=== PATIENT | male | born 1960 | race Caucasian/White ===

== ENCOUNTER 2023-08-16 11:28 | Outpatient (OUT) | payer OTHER, SELFPAY ==
[2023-08-16 12:00] LABS: Basophils Percent Auto 0.4 % (0.2-2.0); Eosinophils Absolute Auto 0.3 10^3/uL (0.0-0.7); Eosinophils Percent Auto 5.2 % (0.9-7.0); Hematocrit 49.4 % (42.0-54.0); Hemoglobin 16.4 g/dL (14.0-18.0); Immature Granulocytes Abs Auto 0.01 10^3/uL (0.00-0.03); Immature Granulocytes Pct Auto 0.2 % (0.0-0.5); Lymphocytes Absolute Auto 1.2 10^3/uL (1.2-3.8); Lymphocytes Percent Auto 23.7 % (20.5-60.0); Mean Corpuscular HGB Conc 33.2 g/dL (29.9-35.2); Mean Corpuscular Hemoglobin 30.7 pg (25.9-34.0); Mean Corpuscular Volume 92.3 fL (80.0-94.0); Mean Platelet Volume 9.1 fL (9.5-13.5); Monocytes Absolute Auto 0.4 10^3/uL (0.3-0.8); Monocytes Percent Auto 7.4 % (1.7-12.0); Neutrophils Absolute Auto 3.3 10^3/uL (1.4-6.5); Neutrophils Percent Auto 63.1 % (43.0-75.0); Platelet Count 298 10^3/uL (150-450); Red Blood Count 5.35 10^6/uL (4.70-6.10); Red Cell Distribution Width 13.1 % (11.0-15.0); White Blood Count 5.2 10^3/uL (4.0-11.0)
[2023-08-16 12:51] LABS: Alanine Aminotransferase 48 U/L (16-63); Alkaline Phosphatase 67 U/L (46-116); Aspartate Amino Transferase 26 U/L (15-37); BUN Creatinine Ratio 16.1; Calcium 9.6 mg/dL (8.5-10.1); Carbon Dioxide 28.8 mmol/L (21.0-32.0); Chloride 103 mmol/L (98-107); Cholesterol 290 mg/dL (<=200); Estimated GFR (African America >60 (>=60); Estimated GFR (Non-African Ame >60 (>=60); Free T3 2.97 pg/mL (2.18-3.98); Globulin 4.1 g/dL; Glucose 135 mg/dL (74-106); HDL Cholesterol 48 mg/dL (40-60); Potassium 3.8 mmol/L (3.5-5.1); Sodium 143 mmol/L (136-145); Thyroid Stimulating Hormone 1.659 uIU/mL (0.358-3.740); Total Protein 8.1 g/dL (6.4-8.2); Triglycerides 175 mg/dL (<=150)
[2023-08-16 12:52] LABS: Prostate Specific Antigen Scrn 5.63 ng/mL (<=4.00)
[2023-08-16 13:07] LABS: Estimated Average Glucose 143 mg/dL; Glycohemoglobin A1C 6.6 % (4.5-6.2)
[2023-08-18 04:08] LABS: PSA, Free 0.78 ng/mL; Prostate Specific Ag 4.9 ng/mL (0.0-4.0)
== END 2023-08-16 11:29 | disposition home or self-care (01) ==
LOC: LAB 11:35
PROVIDERS: PCP Family Medicine; Visit Provider Family Medicine
DX: Z00.00 Encounter for general adult medical examination without abnormal findings (principal); E78.5 Hyperlipidemia, unspecified; R73.09 Other abnormal glucose; Z12.5 Encounter for screening for malignant neoplasm of prostate; R97.20 Elevated prostate specific antigen [PSA]
CPT/HCPCS: 36415; 80053; 80061; 83036; 84153; 84154; 84436; 84443; 84481; 85025; G0103

== ENCOUNTER 2023-11-22 09:52 | Outpatient (OUT) | payer OTHER, SELFPAY ==
--- OUTSIDE RECORDS SUMMARY | 2023-11-22 10:01 | XMS_ITS | CCD ---
Author Organization [facility] Care Team Providers Care Paste Maker Name Role Phone PHYSICIAN, DEFAULT Unavailable Unavailable PHYSICIAN, DEFAULT Unavailable Unavailable Hoy, Julian Primary Care Physician [phone] REYNA, DR PRESTON Attending Unavailable HOY, JULIAN Primary Care Unavailable JOSÉ MIGUELUKACT, DR PRESTON Consulting Unavailable MOUKARBEL, DR PRESTON Admitting Unavailable HOY, JULIAN Primary Care Unavailable HOY, JULIAN Admitting Unavailable HOY, JULIAN Attending Unavailable HOY, JULIAN Consulting Unavailable HOY, JULIAN Primary Care Unavailable HOY, JULIAN Admitting Unavailable HOY, JULIAN Attending Unavailable HOY, JULIAN Primary Care Unavailable HOY, JULIAN Admitting Unavailable HOY, JULIAN Attending Unavailable HOY, JULIAN Consulting Unavailable NILL ., DR JOHNSTON Consulting Unavailable NILL ., DR JOHNSTON Admitting Unavailable NILL ., DR JOHNSTON Attending Unavailable HOY, JULIAN Primary Care Unavailable NILL ., DR JOHNSTON Admitting Unavailable HOY, JULIAN Primary Care Unavailable NILL ., DR JOHNSTON Attending Unavailable HOY, JULIAN Consulting Unavailable WANDA FOREMAN Consulting Unavailable NILL ., DR JOHNSTON Admitting Unavailable NILL ., DR JOHNSTON Attending Unavailable HOY, JULIAN Primary Care Unavailable NILL ., DR JOHNSTON Consulting Unavailable JERALD SCHREIBER Consulting Unavailable ANDERSON DAVIS Consulting Unavailable MOUKARBEL, DR PRESTON Admitting Unavailable HOY, JULIAN Primary Care Unavailable MOUKARBOLIVERIO, DR PRESTON Attending Unavailable HOY, JULIAN Admitting Unavailable HOY, JULIAN Attending Unavailable HOY, JULIAN Consulting Unavailable HOY, JULIAN Primary Care Unavailable JOSE GUERRERO Consulting Unavailable Medications Current Medications Medication Drug Class(es) Dates Sig (Normalized) Sig (Original) ALPRAZolam 0.25 mg oral tablet (3 sources) Benzodiazepine Start: 11-19-2021 take 0.125 mg by mouth twice daily Xanax 0.25 mg Tab 0.125 mg = 0.5 tab(s), Oral, BID, Refills(s) 0 Start Date: 11/19/21 Status: Ordered aspirin 81 mg delayed release oral tablet (3 sources) Platelet Aggregation Inhibitor, Nonsteroidal Anti-inflammatory Drug Start: 11-19-2021 take 1 tablet by mouth once daily aspirin 81 mg Oral EC Tab 81 mg = 1 tab(s), Oral, Daily, Refills(s) 0 Start Date: 11/19/21 Status: Ordered Start: 11-19-2021 take 1 tablet by adam th once daily aspirin 81 mg Oral EC Tab 81 mg = 1 tab(s), Oral, Daily, Refills(s) 0 Start Date: 11/19/21 Status: Ordered 24 hr desvenlafaxine succinate 25 mg extended release oral tablet (2 sources) Serotonin and Norepinephrine Reuptake Inhibitor Start: 01-04-2022 take 1 tablet by mouth once daily Pristiq 25 mg oral tablet, extended release 25 mg = 1 tab(s), Oral, Daily, Refills(s) 0 Start Date: 01/04/22 Status: Ordered Problems Active Problems Problem Classification Problem Date Documented Da te Episodic/Chronic Anal and rectal conditions (1 source) Anorectal disorder; Translations: [Other specified diseases of anus and rectum] Onset: 12-01-2021 Episodic Anxiety disorders (3 sources) Anxiety 07-07-2020 Chronic Cancer; other and unspecified primary (3 sources) H/O Malignant melanoma 07-07-2020 Episodic Cardiac dysrhythmias (3 sources) Palpitations 07-07-2020 Episodic Disorders of lipid metabolism (10 sources) Familial hypercholesterolemia; Translations: [Hyperlipidemia] Onset: 10-26-2021 07-07-2020 Chronic Gastrointestinal hemorrhage (3 sources) Rectal hemorrhage 07-07-2020 Episodic Melanomas of skin (1 source) Malignant melanoma of skin, unspecified; Translations: [MALIGNANT MELANOMA OF SKIN UNSPEC] Onset: 12-29-2021 Chronic Miscellaneous mental health disorders (1 source) Primary insomnia; Translations: [PRIMARY INSOMNIA] Onset: 01-29-2022 Chronic Mood disorders (1 source) Major depressive disorder, single episode, unspecified; Translations: [TARA DEPRESS D/O SINGLE EPIS UNS] Onset: 01-12-2022 Chronic Occlusion or stenosis of precerebral arteries (3 sources) Left carotid artery stenosis 07-07-2020 Chronic Other circulatory disease (3 sources) Carotid bruit 07-07-2020 Episodic Other circulatory disease (3 sources) Prehypertension 07-07-2020 Episodic Other ear and sense organ disorders (3 sources) Sensorineural hearing loss 07-07-2020 Chronic Other nutritional; endocrine; and metabolic disorders (3 sources) Body mass index 25-29 - overweight 12-01-2021 Episodic Residual codes; unclassified (4 sources) Obstructive sleep apnea (adult) (pediatric); Translations: [OBSTRUCTIVE SLEEP APNEA] Onset: 01-26-2022 Chronic Residual codes; unclassified (1 source) Sleep apnea, unspecified; Translations: [SLEEP APNEA UNSPECIFIED] Onset: 01-12-2022 Chronic Screening and history of mental health and substance abuse codes (3 sources) H/O: depression 07-07-2020 Episodic Unclassified (3 sources) Perianal skin irritation 12-01-2021 Unclassified (1 source) CONTACT W/AND (SUSP) EXPOS COVID-19; Translations: [CONTACT W/AND (SUSP) EXPOS COVID-19] Onset: 01-07-2022 Past or Other Problems Problem Classification Problem Date Documented Da te Episodic/Chronic Abdominal hernia (13 sources) Inguinal hernia; Translations: [Unilateral inguinal hernia, without obstruction or gangrene, not specified as recurrent] Onset: 12-01-2021 Episodic Malaise and fatigue (5 sources) Other fatigue; Translations: [OTHER FATIGUE] Onset: 12-22-2021 Episodic Other aftercare (1 source) 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; Translations: [CAN CUTTER CURRENT USE OF ASPIRIN] Onset: 01-12-2022 Episodic Other aftercare (1 source) Other termite helper (current) drug therapy; Translations: [OTH CAN CUTTER CURRENT DRUG THERAPY] Onset: 01-12-2022 Episodic Other non-epithelial cancer of skin (1 source) Personal history of other malignant neoplasm of skin; Translations: [PERSONAL HX OTH MALIG NEOPLASM SKIN] Onset: 01-12-2022 Episodic Residual codes; unclassified (4 sources) Disorientation, unspecified; Translations: [DISORIENTATION UNSPECIFIED] Onset: 11-20-2021 Episodic Results Test Name Value Interpretation Reference Range Facility General Surgery Office/Clini c Noteon 02-14-2022 General Surgery Office/Clinic Note Chief Complaint post operative follow up HPI Staff 27 day post operative follow up post right inguinal hernia repair. Denies pain, bleeding or drainage. History of Present Illness 4 weeks s/p RIHR with mesh, doing well, denies pain, no swelling or drainage. Review of Systems ROS - Provider Constitutional: no fever, no sweats, no weight loss. Eyes: no glasses, no blurred vision, no visual loss. ENMT: no dentures, no hoarseness, no swallowing difficulties, no hearing loss, no ear infection(s), no nose bleeds. Cardiovascular: normal blood pressure, no chest pain, regular heartbeat, no heart murmur. Respiratory: no shortness of breath, no cough, no asthma, no wheezing. Gastrointestinal: no nausea, no vomiting, no diarrhea, no constipation, no blood in stool, no change in bowel habits, no abdominal pain, no hepatitis. Genitourinary: no kidney stones, no urine infection, no dysuria. Musculoskeletal: no pain, no weakness. Skin: no changing moles, no rash, no skin lumps. Neurologic: no seizures, no epilepsy, no headache. Psychiatric: no emotional or psychiatric problem. Heme/Lymph: no bleeding problems, no anemia, no blood clots, no transfusions. Allergy/Immunologic: no swollen lymph nodes/glands, no IV drug abuse. Other: Additional ROS info: Except as noted in the above Review of Systems and in the History of Present Illness, all other systems have been reviewed and are negative or noncontributory. Physical Exam abd: soft, nontender, nondistended; incision healing well, no erythema or drainage; no recurrent hernias. Assessment/Plan 1. Right inguinal hernia (K40.90: Unilateral inguinal hernia, without obstruction or gangrene, not specified as recurrent) doing well, gradually resume regular activities; call with problems/questions. Follow-up With When Contact Information ARISTEO JONES, YANY Grier Only if needed [address] [place] [address]- Additional Instructions: Problem List/Past Medical History Ongoing Anxiety BMI 29.0-29.9,adult Borderline hypertension Carotid bruit Familial hypercholesterolemia High frequency sensorineural hearing loss of left ear History of depression History of malignant melanoma Hyperlipidemia Irritation of skin of perianal region Left carotid artery stenosis Left inguinal hernia Palpitations Rectal bleeding Right inguinal hernia Historical No qualifying data Procedure/Surgical History Repair of right inguinal hernia (01/06/2022), Rotator cuff repair (10/23/2020), Colonoscopy (12/29/2016), Cervical spinal fusion, Deviated nasal septum, Eyelid, Malignant melanoma, Repair of left inguinal hernia, Rubber band ligation of hemorrhoid(s). Medications aspirin 81 mg Oral EC Tab, 81 mg= 1 tab(s), Oral, Daily Pristiq 25 mg oral tablet, extended release, 25 mg= 1 tab(s), Oral, Daily Xanax 0.25 mg Tab, 0.125 mg= 0.5 tab(s), Oral, BID Allergies No Known Allergies No Known Medication Allergies Social History Alcohol - Denies Alcohol Use, 07/10/2020 Substance Abuse - Denies Substance Abuse, 07/10/2020 Tobacco Never (less than 100 in lifetime) Tobacco Use:. Never Smokeless Tobacco Use:., 12/01/2021 Family History Cancer: Brother. Cardiac arrest: Mother. Pancreatic adenocarcinoma: Father. [facility] Comment on above: Result Comment: Elec tronically Signed By: ARISTEO JONES, Preston Thakkar\.br\Date and Time Signed: 02/14/22 21:00 EDT Formson 01-22-2022 Forms [id number]:12 7 [facility] Ambulatory Visit Summaryon 0 01-19-2022 Ambulatory Visit Summary CARINA LAM :1960 Visit Date:01/19/2022 Ambulatory Visit Instructions Your Care Team Attending Physician - ARISTEO JONES, Preston Thakkar Primary Care Physician - Julian Wang MD This Is Your Medications List alprazolam (Xanax 0.25 mg Tab) aspirin (aspirin 81 mg Oral EC Tab) desvenlafaxine (Pristiq 25 mg oral tablet, extended release) Procedures Performed Repair of right inguinal hernia (01/06/2022), Rotator cuff repair (10/23/2020), Colonoscopy (12/29/2016), Cervical spinal fusion, Deviated nasal septum, Eyelid, Malignant melanoma, Repair of left inguinal hernia, Rubber band ligation of hemorrhoid(s). What to do next Scheduled Follow-Up Appointments Tuesday 2:40 PM EDT With: ARISTEO JONES, Preston Thakkar Where: General Surgery [facility] General Surgery Office/Clini c Noteon 01-19-2022 General Surgery Office/Clinic Note Chief Complaint post operative follow up HPI Staff 13 day post operative follow up post right inguinal hernia repair. Denies pain, no use of pain medication. Denies bleeding or drainage. Bowels moving well. History of Present Illness 2 weeks s/p RIHR with mesh; doing well, mild soreness, not taking any pain meds, normal bms; no N/V; voiding well, no drainage from incision; no strenuous activities. Review of Systems ROS - Provider Constitutional: no fever, no sweats, no weight loss. Eyes: no glasses, no blurred vision, no visual loss. ENMT: no dentures, no hoarseness, no swallowing difficulties, no hearing loss, no ear infection(s), no nose bleeds. Cardiovascular: normal blood pressure, no chest pain, regular heartbeat, no heart murmur. Respiratory: no shortness of breath, no cough, no asthma, no wheezing. Gastrointestinal: no nausea, no vomiting, no diarrhea, no constipation, no blood in stool, no change in bowel habits, no abdominal pain, no hepatitis. Genitourinary: no kidney stones, no urine infection, no dysuria. Musculoskeletal: no pain, no weakness. Skin: no changing moles, no rash, no skin lumps. Neurologic: no seizures, no epilepsy, no headache. Psychiatric: no emotional or psychiatric problem. Heme/Lymph: no bleeding problems, no anemia, no blood clots, no transfusions. Allergy/Immunologic: no swollen lymph nodes/glands, no IV drug abuse. Other: Additional ROS info: Except as noted in the above Review of Systems and in the History of Present Illness, all other systems have been reviewed and are negative or noncontributory. Physical Exam abd: soft, normal bs, nontender, incision healing well, no erythema or drainage, no ecchymoses. Assessment/Plan 1. Right inguinal hernia (K40.90: Unilateral inguinal hernia, without obstruction or gangrene, not specified as recurrent) doing well; continue no lifting > 10 lbs for 2 more weeks, follow up in 2 weeks; call sooner if problems/questions. Follow-up No qualifying data available Problem List/Past Medical History Ongoing Anxiety BMI 29.0-29.9,adult Borderline hypertension Carotid bruit Familial hypercholesterolemia High frequency sensorineural hearing loss of left ear History of depression History of malignant melanoma Hyperlipidemia Irritation of skin of perianal region Left carotid artery stenosis Left inguinal hernia Palpitations Rectal bleeding Right inguinal hernia Historical No qualifying data Procedure/Surgical History Repair of right inguinal hernia (01/06/2022), Rotator cuff repair (10/23/2020), Colonoscopy (12/29/2016), Cervical spinal fusion, Deviated nasal septum, Eyelid, Malignant melanoma, Repair of left inguinal hernia, Rubber band ligation of hemorrhoid(s). Medications aspirin 81 mg Oral EC Tab, 81 mg= 1 tab(s), Oral, Daily Pristiq 25 mg oral tablet, extended release, 25 mg= 1 tab(s), Oral, Daily Xanax 0.25 mg Tab, 0.125 mg= 0.5 tab(s), Oral, BID Allergies No Known Allergies No Known Medication Allergies Social History Alcohol - Denies Alcohol Use, 07/10/2020 Substance Abuse - Denies Substance Abuse, 07/10/2020 Tobacco Never (less than 100 in lifetime) Tobacco Use:. Never Smokeless Tobacco Use:., 12/01/2021 Family History Cancer: Brother. Cardiac arrest: Mother. Pancreatic adenocarcinoma: Father. Normal [facility] Comment on above: Result Comment: Elec tronically Signed By: ARISTEO JONES, Preston Velarde\Date and Time Signed: 01/19/22 16:25 EDT Operative Reporton Operative Report [id number]:12 7 Normal [facility] Lab Reportson 01-04-2022 Lab Reports [id number]:12 7 Normal [facility] Covid-19 PCR (CVDTBH)on SARS-CoV-2 (COVID-19) RNA FARA+probe Ql (Unsp spec) Not detected Normal NOT DETECTED [facility] Comment on above: Result Comment: When diagnostic testing is negative, the possibility of a false negative should be considered in the context of a patient's recent exposures and the presence of clinical signs and symptoms consistent with SARS-CoV-2. This test is not yet approved or cleared by the [place] FDA. When there are no FDA-approved or cleared tests available, and other criteria are met, FDA can make tests available under an emergency access mechanism called an Emergency Use Authorization (EUA). The EUA for this test is supported by the [place] of Health and Human Service's declaration that circumstances exist to justify the emergency use of in vitro diagnostics for the detection and/or diagnosis of the virus that causes COVID-19. This EUA will remain in effect for the duration of the COVID-19 declaration justifying emergency of IVDs, unless it is terminated or revoked by the FDA (after which the test may no longer be used). Performed By: #### C VDTBH #### [facility] [address] [place] [address] Dr. Shan Worley T4 LABCORPon 12-25-2021 T4 [Mass/Vol] 8.5 ug/dL Normal 4.5-12.0 [facility] Comment on above: Performed By: #### T 4LC #### [facility] [address] [place] [address] Dr. Shan Worley Formson 12-24-2021 Forms [id number]:12 7 Normal [facility] TESTOSTERONE, TOTALon 2021 Testosterone [Mass/Vol] 294 ng/dL Normal 264-916 [facility] Comment on above: Result Comment: Adul t male reference interval is based on a population of healthy nonobese males (BMI <30) between 19 and 39 years old. Devin, et.al. JCEM 2017,102;6111-0246. PMID: [id number]. Performed By: #### T ESTTOT #### [facility] [address] [place] [address] Dr. Shan Worley CBC AUTO DIFFon 12-22-2021 BASO # 0.0 103/ul Normal 0.0-0.1 [facility] Comment on above: Performed By: #### C BC #### [facility] [address] [address] [address] Shan Worley Basophils/100 WBC (Bld) 0.2 % Normal 0.2-2.0 [facility] Comment on above: Performed By: #### C BC #### [facility] [address] [place] [address] Dr. Shan Worley EO # 0.1 103/ul Normal 0.0-0.7 [facility] Comment on above: Performed By: #### C BC #### [facility] [address] [place] [address] Dr. Shan Worley Eosinophils/100 WBC (Bld) 1.6 % Normal 0.9-7.0 [facility] Comment on above: Performed By: #### C BC #### [facility] [address] [place] [address] Dr. Shan Worley Erythrocyte distribution width (RBC) [Ratio] 12.7 % Normal 11.0-15.0 [facility] Comment on above: Performed By: #### C BC #### [facility] [address] [place] [address] Dr. Shan Worley Hematocrit (Bld) [Volume fraction] 46.9 % Normal 42.0-54.0 [facility] Comment on above: Performed By: #### C BC #### [facility] [address] [place] [address] Dr. Shan Worley Hemoglobin (Bld) [Mass/Vol] 15.9 g/dL Normal 14.0-18.0 [facility] Comment on above: Performed By: #### C BC #### [facility] [address] [place] [address] Dr. Shan Worley IG # 0.04 10e3/ul Critically high 0.00-0.03 [facility] Comment on above: Performed By: #### C BC #### [facility] [address] [place] [address] Dr. Shan Worley IG % 0.5 % Normal 0.0-0.5 [facility] Comment on above: Performed By: #### C BC #### [facility] [address] [address] [address] Shan Worley LYMPH # 1.5 103/ul Normal 1.2-3.8 [facility] Comment on above: Performed By: #### C BC #### [facility] [address] [address] [address] Shan Worley Lymphocytes/100 WBC (Bld) 18.1 % Critically low 20.5-60.0 [facility] Comment on above: Performed By: #### C BC #### [facility] [address] [place] [address] Dr. Shan Worley MANUAL DIFF REQ NO Normal [facility] Comment on above: Performed By: #### C BC #### [facility] [address] [place] [address] Dr. Shan Worley MCH (RBC) [Entitic mass] 31.5 pg Normal 25.9-34.0 [facility] Comment on above: Performed By: #### C BC #### [facility] [address] [place] [address] Dr. Shna Worley MCHC (RBC) [Mass/Vol] 33.9 g/dL Normal 29.9-35.2 [facility] Comment on above: Performed By: #### C BC #### [facility] [address] [place] [address] Dr. Shan Worley MCV (RBC) [Entitic vol] 92.9 fL Normal 80.0-94.0 [facility] Comment on above: Performed By: #### C BC #### [facility] [address] [place] [address] Dr. Shan Worley MONO # 0.7 103/ul Normal 0.3-0.8 [facility] Comment on above: Performed By: #### C BC #### [facility] [address] [place] [address] Dr. Shan Worley Monocytes/100 WBC (Bld) 8.8 % Normal 1.7-12.0 [facility] Comment on above: Performed By: #### C BC #### [facility] [address] [address] [address] Shan Worley NEUT # 5.8 103/ul Normal 1.4-6.5 [facility] Comment on above: Performed By: #### C BC #### [facility] [address] [place] [address] Dr. Shan Worley Neutrophils/100 WBC (Bld) 70.8 % Normal 43.0-75.0 [facility] Comment on above: Performed By: #### C BC #### [facility] [address] [place] [address] Dr. Shan Worley Platelet mean volume (Bld) [Entitic vol] 8.6 fL Critically low 9.5-13.5 [facility] Comment on above: Performed By: #### C BC #### [facility] [address] [place] [address] Dr. Shan Worley PLT 285 103/ul Normal 150-450 [facility] Comment on above: Performed By: #### C BC #### [facility] [address] [place] [address] Dr. Shan Worley RBC 5.05 106/ul Normal 4.70-6.10 [facility] Comment on above: Performed By: #### C BC #### [facility] [address] [place] [address] Dr. Shan Worley WBC 8.2 103/ul Normal 4.0-11.0 [facility] Comment on above: Performed By: #### C BC #### [facility] [address] [place] [address] Dr. Shan Worley FREE T3on 12-22-2021 FREE T3 3.46 pg/mlL Normal 2.18-3.98 [facility] Comment on above: Performed By: #### T SH, FT3 #### [facility] [address] [place] [address] Dr. Shan Worley TSHon 12-22-2021 TSH 1.370 uIU/mL Normal 0.358-3.740 [facility] Comment on above: Performed By: #### T TARIQ, FT3 #### [facility] [address] [address] [address] Shan Worley TSH RANGE SEE BELOW Normal [facility] Comment on above: Result Comment: <0.3 4 UIU/ml HYPERTHYROID 0.34-5.60 UIU/ml EUTHYROID >5.60 UIU/ml HYPOTHYROID Performed By: #### T SH, FT3 #### [facility] [address] [address] [address] Shan Worley Consent for Procedure/Surger yon 12-03-2021 Consent for Procedure/Surgery [id number]:12 7 Normal [facility] Ambulatory Visit Summaryon 0 12-01-2021 Ambulatory Visit Summary LAM CARINA A :1960 Visit Date:12/01/2021 Ambulatory Visit Instructions Your Care Team Attending Physician - Preston ALBERTS MD Primary Care Physician - Julian Wang MD Referring Physician - Julian Wang MD This Is Your Medications List Contact prescribing physician if questions or concerns alprazolam (Xanax 0.25 mg Tab) aspirin (aspirin 81 mg Oral EC Tab) Procedures Performed Rotator cuff repair (10/23/2020), Colonoscopy (12/29/2016), Cervical spinal fusion, Deviated nasal septum, Eyelid, Malignant melanoma, Repair of left inguinal hernia, Rubber band ligation of hemorrhoid(s). Discharge Vitals Heart Rate (Peripheral) 76 Respiratory Rate 16 Blood Pressure 148/96 Height 170.2 cm Height 170.18 cm Weight 85.0 kg Weight 85 kg BMI 29.35 Medications What How Much When Instructions Unchanged alprazolam (Xanax 0.25 mg Tab) 0.5 Tablets By Mouth 2 times a day Contact prescribing physician if questions or concerns Unchanged aspirin (aspirin 81 mg Oral EC Tab) 1 Tablets By Mouth Every day Contact prescribing physician if questions or concerns Allergies No Known Allergies No Known Medication Allergies Problems Ongoing - Any problem that you are currently receiving treatment for. Anxiety BMI 29.0-29.9,adult Borderline hypertension Carotid bruit Familial hypercholesterolemia High frequency sensorineural hearing loss of left ear History of depression History of malignant melanoma Hyperlipidemia Left carotid artery stenosis Left inguinal hernia Palpitations Rectal bleeding Right inguinal hernia Normal [facility] MRI BRAIN WO W CONon 022 MRI BRAIN WO W CON Exam: MR scan of brain with and without contrast TECHNIQUE: Sagittal T1, axial FLAIR, ALVERTO T2, GRE, and diffusion imaging performed without contrast. CONTRAST: None. COMPARISON: None. HISTORY: Confusion and fatigue FINDINGS: No evidence of acute intracranial disease. Ventricles, sulci, and basilar cisterns are normal in appearance. No evidence of mass or signal abnormality. No evidence of diffusion abnormality. The cerebral hemispheres, brain stem and cerebellar hemispheres are normal. Good flow void is seen in the vertebrobasilar and carotid circulations as well as the sagittal and transverse sinus. The orbital apices and the infratemporal fossa are normal. The craniocervical junction is normal. IMPRESSION: 1. Normal examination. Electronically authenticated by: Minh GUERRERO Date: 2021-11-20 13:42 Normal [facility] Physician Referralon 022 Physician Referral [id number] Normal [facility] LIPID PROFILEon 10-26-2021 CHOL-HDL RATIO NORM SEE BELOW Normal [facility] Comment on above: Result Comment: 3.3 - 4.4 LOW RISK 4.4 - 7.1 AVERAGE RISK 7.1 - 11.0 MODERATE RISK >11.0 HIGH RISK Performed By: #### L IPID #### [facility] [address] [address] [address] Shan Worley Cholesterol [Mass/Vol] 237 mg/dL Critically high <=200 [facility] Comment on above: Performed By: #### L IPID #### [facility] [address] [address] [address] Shan Worley Cholesterol in HDL [Mass/Vol] 52 mg/dL Normal 40-60 [facility] Comment on above: Performed By: #### L IPID #### [facility] [address] [address] [address] Shan Worley Cholesterol in LDL [Mass/Vol] 165.6 mg/dL Normal [facility] Comment on above: Performed By: #### L IPID #### [facility] [address] [address] [address] Shan Worley Cholesterol.total /Cholesterol in HDL [Mass ratio] 4.6 {ratio} Normal [facility] Comment on above: Performed By: #### L IPID #### [facility] [address] [address] [address] Shan Worley HDL NORMAL > or = 60 mg/dl - LO W CARDIOVASCULAR RISK <40 mg/dl - HIGH CARDIOVASCULAR RISK Normal [facility] Comment on above: Performed By: #### L IPID #### [facility] [address] [address] [address] Shan Worley LDL CALC NORMAL SEE BELOW Normal [facility] Comment on above: Result Comment: <100 mg/dl OPTIMAL 100 - 129 mg/dl NEAR OR ABOVE OPTIMAL 130 - 159 mg/dl BORDERLINE HIGH 160 - 189 mg/dl HIGH >190 mg/dl VERY HIGH Performed By: #### L IPID #### [facility] [address] [address] [address] Shan Worley Triglyceride [Mass/Vol] 97 mg/dL Normal <=150 [facility] Comment on above: Performed By: #### L IPID #### [facility] [address] [address] [address] Shan Worley VLDL CALC 19.4 mg/dL Normal [facility] Comment on above: Performed By: #### L IPID #### [facility] [address] [place] [address] Dr. Shan Worley Vital Signs Date Time Vital Sign Value Performing Clinician Colton mejia 12-01-2021 13:22-0400 Blood Pressure Location Preston ARISTEO [facility] 12-01-2021 13:22-0400 Diastolic blood pressure 96 mm[Hg] Preston ALBERTS [facility] 12-01-2021 13:22-0400 Heart rate 76 /min Preston ALBERTS [facility] 12-01-2021 13:22-0400 Respiratory rate 16 /min Preston ARISTEO [facility] 12-01-2021 13:22-0400 Systolic blood pressure 148 mm[Hg] Preston ALBERTS [facility] Encounters Encounter Date Encounter Type Care Provider Facility Start: 10-12-2022 ambulatory [facility] Facility:H 1 Start: 02-02-2022 End: 02-02-2022 Patient encounter procedure Preston NGL [facility] Start: 01-26-2022 End: 01-27-2022 ambulatory [facility] Facility:H1 Start: 01-19-2022 End: 01-19-2022 Patient encounter procedure Preston ALBERTS [facility] Start: 01-07-2022 Encounter for preprocedural laboratory examination DR PRESTON ALBERTS . [facility] Start: 01-06-2022 End: 01-06-[address] PRESTON ALBERTS . Facility:[facility]1 Start: 01-02-2022 End: 01-03-[address] PRESTON ALBERTS . Facility:[facility]1 Start: 01-02-2022 End: 01-03-2022 Encounter for preprocedural laboratory examination DR PRESTON ALBERTS . Facility:[facility]1 Start: 12-25-2021 Encounter for other preprocedural examination DR PRESTON ALBERTS . [facility] Start: 12-23-2021 End: 12-24-[address] PRESTON ALBERTS . Facility:[facility]1 Start: 12-23-2021 End: 12-24-2021 Encounter for other preprocedural examination DR PRESTON ALBERTS . Facility:[facility]1 Start: 12-22-2021 End: 12-23-2021 ambulatory [facility] Facility:H1 Start: 12-01-2021 End: 12-01-2021 Patient encounter procedure Preston ALBERTS [facility] Start: 11-20-2021 End: 11-20-2021 ambulatory JULIAN WANG Facility:[facility]1 Start: 11-13-[address] KARY ORELLANA Fac ility:[facility]1 Start: 10-26-2021 End: 10-27-[address] KARY ORELLANA Facility:[facility]1 Start: 01-27-2017 End: 01-28-2017 Ambulatory DEFAULT PHYSICIAN Facility:[facility] Procedures Date Procedure Procedure Detail Performing Clinician Start: 01-06-2022 Repair of right ingu inal hernia Preston NILL Start: 10-23-2020 Repair of musculoten dinous cuff of shoulder Preston NILL Start: 12-29-2016 Colonoscopy Preston NI LL Cervical arthrodesis Preston NILL Deviated nasal septu m (disorder) Preston NILL Eyelid structure (noah dy structure) Preston NILL Malignant melanoma (disorder) Preston NILL Comment on above: back Repair of left ingui nal hernia Preston NILL Rubber band ligation of hemorrhoid(s) Preston NILL Payers Date Payer Category Payer Unknown [id number] 2.16.84 [id number] 1960 Unknown [id number] 2.16.84 [id number] 1960 Unknown [id number] 2.16.84 [id number] 1960 Unknown [id number] 2.16.84 [id number] 1960 Unknown [id number] 2.16.84 [id number] 1960 Unknown [id number] 2.16.84 [id number] 1962 Unknown [id number] 2.16.84 [id number] 1962 Unknown [id number] 2.16.84 [id number] 1960 Unknown [id number] 2.16.84 [id number] 1959 Private Health Insurance [id number] 1957 Self-pay Unknown Social History Date Type Detail Facility Start: 12-01-2021 Tobacco smoking status Never s moked tobacco (finding) [facility] Tobacco smoking status Never [facility] Sex Assigned At Male [facility] Clinical Note 01-06-2022 Note Date & Type Note Facility 01-06-2022 Note OPERATIVE NOTE OPERATION DATE: 01/06/2022 PREOPERATIVE DIAGNOSIS: Right inguinal hernia. POSTOPERATIVE DIAGNOSIS: Direct right inguinal hernia. PROCEDURE: Right inguinal herniorrhaphy with Bard mesh patch insertion. SURGEON: Preston Alberts M.D. ANESTHESIA: General endotracheal. ESTIMATED BLOOD LOSS: Less than 5 mL. INDICATIONS AND CONSENT: Patient is a 61-year-old male, presents with a symptomatic right inguinal hernia. Indications, risks, benefits, alternatives of proceeding with herniorrhaphy were explained extensively to the patient, including risks of bleeding, infection, nerve injury, testicular injury, blood clot, pulmonary embolus, heart attack, anesthetic complications, recurrent hernia, need for further surgery or mesh removal. All of his questions were answered. Informed consent was obtained. PROCEDURE: Patient brought to the operating room, placed in the left lateral decubitus position. General anesthesia was induced. Patient was then prepped and draped in the usual sterile fashion. Right groin incision was made in the area of the skin crease and carried down through subcutaneous tissue using sharp dissection as well as electrocautery. Tariq's fascia was divided. The external oblique was attenuated. It was opened along the direction of its fibers, down through the external inguinal ring. Cord structures were mobilized and retraced with a Ag drain. The ilioinguinal nerve was noted to be in the area of where the mesh would be inserted; therefore, it was divided and the ends were tied with 3-0 Vicryl ties. There was noted to be a large direct hernia that was freed up. The sac was incised. The preperitoneal fat was reduced. The floor was then imbricated with interrupted 2-0 Prolene sutures. The wound was irrigated. There was good hemostasis. The Bard 5 x 10 cm mesh was trimmed. The keyhole was created. It was placed in the floor of the inguinal canal. The arms were placed around the cord structures. The mesh was then secured circumferentially using interrupted 3-0 Vicryl sutures. Care was taken to avoid undo tension on the cord structures. Once this was complete, the wound was irrigated with antibiotic saline. There was good hemostasis. The external oblique was closed with a running 3-0 Vicryl suture. Exparel solution was then injected in the subcutaneous tissue. Tariq's fascia was re-approximated using interrupted 3-0 Monocryl suture. The skin was then closed with a running 4-0 subcuticular Monocryl sutures and skin glue. Sterile pressure dressing was applied. Sponge and needle counts were correct x2 per nursing personnel. Patient tolerated procedure well, was extubated, sent to recovery room in good condition. CC: Julian Wang M.D. [facility] Signed and Approved by: DR PRESTON ALBERTS . 01/07/2022 13:04:00 [facility] Clinical Note 12-01-2021 Note Date & Type Note Facility 12-01-2021 Note Chief Complaint consultation for rectal pain/pressure and [facility] HPI Staff 61 year old male presents on consultation from Dr. Wang for rectal pain and pressure and re-evaluation of right inguinal hernia. Denies rectal bleeding. Last hernia evaluation 09/23/20. Believes may have slightly increased in size. Denies tenderness or soreness. No nausea or vomiting. Bowels moving well. Last colonoscopy completed 12/29/16 with prominent rectal veins. History of Present Illness 61 yo male with h/o htn, hyperlipidemia, referred for rectal pain/pressure; worsened several months ago after several day episode of diarrhea; some improvement over last several weeks; no significant swelling, did feel small hemorrhoid in past; no bleeding; h/o hemorrhoid banding; last colonoscopy 5 years ago with prominent rectal veins; also has h/o right inguinal hernia, has been previously evaluated for this 07/2020 and 09/2020, but declined to schedule surgery; abdominal surgery significant for remote LIHR. on baby asa daily, no NSAIDs, no SPE prophylaxis; no fmhx of colon cancer or IBD. no tobacco use. Review of Systems PHQ Score Initial Depression Screen Score: 0 ROS - Provider Constitutional: no fever, no sweats, no weight loss. Eyes: no glasses, no blurred vision, no visual loss. ENMT: no dentures, no hoarseness, no swallowing difficulties, no hearing loss, no ear infection(s), no nose bleeds. Cardiovascular: normal blood pressure, no chest pain, regular heartbeat, no heart murmur. Respiratory: no shortness of breath, no cough, no asthma, no wheezing. Gastrointestinal: no nausea, no vomiting, no diarrhea, no constipation, no blood in stool, no change in bowel habits, no abdominal pain, no hepatitis. Genitourinary: no kidney stones, no urine infection, no dysuria. Musculoskeletal: no pain, no weakness. Skin: no changing moles, no rash, no skin lumps. Neurologic: no seizures, no epilepsy, no headache. Psychiatric: no emotional or psychiatric problem. Heme/Lymph: no bleeding problems, no anemia, no blood clots, no transfusions. Allergy/Immunologic: no swollen lymph nodes/glands, no IV drug abuse. Other: Additional ROS info: Except as noted in the above Review of Systems and in the History of Present Illness, all other systems have been reviewed and are negative or noncontributory. Physical Exam Vitals & Measurements HR: 76(Peripheral) RR: 16 BP: 148/96 HT: 170.2 cm HT: 170.18 cm WT: 85.0 kg WT: 85 kg BMI: 29.35 HEENT: normal conjunctiva, sclera clear, no scleral icterus, EOM intact, PERRLA, oral mucosa moist without lesions. Neck: trachea midline, no mass, symmetric, no thyromegaly or nodules, no adenopathy Respiratory: lungs CTA, respirations non labored. Cardiovascular: regular rate and rhythm, no murmur, no pedal edema or varicosities. Gastrointestinal: soft, non distended, no tenderness, no masses, reducible right inguinal hernia, no skin changes, nontender, diastasis recti no, no hepatosplenomegaly; normal bs rectal: perianal irritation, no external hemorrhoids, no fissure, no blood, no masses, decreased tone Lymphatic: no cervical adenopathy, no inguinal adenopathy. Musculoskeletal: normal gait, digits and nails without infection, nodes, cyanosis, clubbing. Skin: no rashes, no lesions, no ulcers, no subcutaneous nodules, induration. Psychiatric/Neuro: oriented to time, place, person, judgement normal, affect appropriate for age, insight intact, no focal deficits. Tests: review of old records completed, Discussed surgical options, risks, and possible complications with patient. Assessment/Plan 1. Right inguinal hernia (K40.90: Unilateral inguinal hernia, without obstruction or gangrene, not specified as recurrent) plan RIHR with mesh insertion, informed consent obtained. Ancef 2 gms IV prior to OR SCDs 2. Irritation of skin of perianal region (K62.89: Other specified diseases of anus and rectum) use wet wipes; no creams or ointments; keep area clean and dry Follow-up No qualifying data available Problem List/Past Medical History Ongoing Anxiety BMI 29.0-29.9,adult Borderline hypertension Carotid bruit Familial hypercholesterolemia High frequency sensorineural hearing loss of left ear History of depression History of malignant melanoma Hyperlipidemia Irritation of skin of perianal region Left carotid artery stenosis Left inguinal hernia Palpitations Rectal bleeding Right inguinal hernia Historical No qualifying data Procedure/Surgical History Rotator cuff repair (10/23/2020), Colonoscopy (12/29/2016), Cervical spinal fusion, Deviated nasal septum, Eyelid, Malignant melanoma, Repair of left inguinal hernia, Rubber band ligation of hemorrhoid(s). Medications aspirin 81 mg Oral EC Tab, 81 mg= 1 tab(s), Oral, Daily Xanax 0.25 mg Tab, 0.125 mg= 0.5 tab(s), Oral, BID Allergies No Known Allergies No Known Medication Allergies Social History Alcohol - Denies Alcohol Use, 07/10/2020 [facility] (more content not included)... [facility] Comment on above: Result Comment: Elec tronically Signed By: Preston ALBERTS MD\.br\Date and Time Signed: 12/01/21 16:42 EDT Evaluation + Plan note Note Date & Type Note Facility Evaluation + Plan note No data available for this section [facility] Evaluation + Plan note Note Date & Type Note Facility Evaluation + Plan note Future Appointments Appointment Date:02/02/2022 02:40:00 PM Scheduled Provider:Preston ALBERTS MD Location:[facility] Appointment Type: Post Op 15 [facility] Discharge instructions Note Date & Type Note Facility Hospital Discharge instructions No data available for this section [facility] Progress note Note Date & Type Note Facility Progress note No data available for this section [facility] Summary Purpose Family History No Family History Records FoundNo Family History Records FoundNo Family History Records Found Advance Directives No Advanced Directives Records FoundNo Advanced Directives Records FoundNo Advanced Directives Records Found Additional Source Comments (unrecognized sect ion and content) No Status Records FoundNo Status Records FoundNo Status Records Found INFORMATION SOURCE (unrecogn ized section and content) DATE CREATED AUTHOR 01/25/2018 [facility] DATE CREATED AUTHOR AUTHOR'S ORGANIZ ATION 02/19/2022 [facility] DATE CREATED AUTHOR AUTHOR'S ORGANIZ ATION 10/13/2022 [facility] Care Team (unrecognized sect ion and content) Personnel Name: Julian Wang MD Address: [address] [place] [address] Personnel Name: Julian Wang MD Address: [address] [place] [address] FOR RECORDS PERTAINING TO PATIENTS WHO ARE OR HAVE BEEN ENROLLED IN A CHEMICAL DEPENDENCY/SUBSTANCEABUSE PROGRAM, SOME INFORMATION MAY BE OMITTED. This clinical summary was aggregated from multiple sources. Caution should be exercised in using it in the provision of clinical care. This summary normalizes information from multiple sources, and as a consequence, information in this document may materially change the coding, format and clinical context of patient data. In addition, data may be omitted in some cases. CLINICAL DECISIONS SHOULD BE BASED ON THE PRIMARY CLINICAL RECORDS. [facility]. provides no warranty or guarantee of the accuracy or completeness of information in this document.
[2023-11-22 11:23] LABS: Alanine Aminotransferase 33 U/L (16-63); Albumin Level 3.8 g/dL (3.4-5.0); Alkaline Phosphatase 58 U/L (46-116); Anion Gap 12.4; Aspartate Amino Transferase 24 U/L (15-37); BUN Creatinine Ratio 16.8; Bilirubin Total 1.1 mg/dL (0.2-1.0); Calcium 9.6 mg/dL (8.5-10.1); Carbon Dioxide 30.5 mmol/L (21.0-32.0); Chloride 103 mmol/L (98-107); Chol HDL Ratio 5.3; Cholesterol 263 mg/dL (<=200); Estimated GFR (African America >60 (>=60); Estimated GFR (Non-African Ame >60 (>=60); Globulin 3.7 g/dL; Glucose 115 mg/dL (74-106); HDL Cholesterol 50 mg/dL (40-60); Potassium 3.9 mmol/L (3.5-5.1); Sodium 142 mmol/L (136-145); Total Protein 7.5 g/dL (6.4-8.2); Triglycerides 99 mg/dL (<=150); VLDL CHOLESTEROL 19.8 mg/dL
[2023-11-22 12:51] LABS: Estimated Average Glucose 128 mg/dL; Glycohemoglobin A1C 6.1 % (4.5-6.2)
[2023-11-23 08:10] LABS: PSA, Free 1.07 ng/mL; Prostate Specific Ag 4.1 ng/mL (0.0-4.0)
== END 2023-11-22 09:53 | disposition home or self-care (01) ==
LOC: LAB 09:53
PROVIDERS: PCP Family Medicine; Visit Provider Family Medicine
DX: E78.00 Pure hypercholesterolemia, unspecified (principal); R97.20 Elevated prostate specific antigen [PSA]; E11.9 Type 2 diabetes mellitus without complications
CPT/HCPCS: 36415; 80053; 80061; 83036; 84153; 84154

== ENCOUNTER 2024-07-19 12:54 | Emergency (ER) | payer OTHER, SELFPAY ==
[2024-07-19 13:00] VITALS: BP 185/116; PULSE 90; TEMP 37.1; O2SAT 97; BMI 26.6
--- NOTE | 2024-07-19 13:05 | XR_ITS ---
[address] [address] Patient Name: CARINA LAM MRN: [id number] date: 1960 Sex: M Assigned Patient Location: ER Current Patient Location: ER Accession/Order Number: [id number] Exam Date: 07/19/2024 13:34 Report Date: 07/19/2024 13:54 At the request of: CARMINA ELLISON Procedure: XR wrist LT min 3V PROCEDURE: XR wrist LT min 3V COMPARISON: None. HISTORY: pain FINDINGS: BONES:No acute fracture or dislocation. Moderate degenerative osteoarthropathy with joint space narrowing marginal osteophyte formation SOFT TISSUES:Negative. No visible soft tissue swelling. EFFUSION:None visible. OTHER: Negative. XR/XR wrist LT min 3V IMPRESSION: Moderate osteoarthritis. Electronically authenticated by: BRUNO HANKINS Date: 07/19/2024 13:54
--- NOTE | 2024-07-19 13:10 | PC.NURSE ---
right side rib pain, no bruising at this time.
--- NOTE | 2024-07-19 13:14 | CT_ITS ---
The [address] [address] Patient Name: CARINA LAM MRN: [id number] date: 1960 Sex: M Assigned Patient Location: ER Current Patient Location: ER Accession/Order Number: [id number] Exam Date: 07/19/2024 13:34 Report Date: 07/19/2024 14:13 At the request of: WILLIS TRINIDAD Procedure: CT chest wo con EXAMINATION: CT chest wo con HISTORY: Fall, right sided chest wall injury COMPARISON: No relevant comparison available. TECHNIQUE: Multi-planar CT images were created with IV contrast. Axial, Coronal, and Sagittal images. Dose reduction techniques were achieved by using automated exposure control and/or adjustment of mA and/or kV according to patient size and/or use of iterative reconstruction technique. FINDINGS: LUNGS: Linear opacities both lung bases, atelectasis is favored PLEURA: No mass, effusion, or pneumothorax. VASCULATURE: No abnormality. FABY: No mass or adenopathy. MEDIASTINUM: No mass or adenopathy. CARDIAC: No enlargement or pericardial effusion Coronary arteries: Mild calcifications AORTA: No aneurysm or dissection. CHEST WALL: No mass or axillary adenopathy. BONES: Fracture of the right lateral sixth and seventh ribs LIMITED ABDOMEN: Partially visualized 10.9 cm left renal cystic lesion OTHER: Negative. CT/CT chest wo con IMPRESSION: Nondisplaced fractures right lateral sixth and seventh ribs with no pneumothorax Electronically authenticated by: BRUNO HANKINS Date: 07/19/2024 14:13
--- NOTE | 2024-07-19 13:15 | ED_ITS ---
HPI HPI - General Adult General Chief complaint: Chest Pain Stated complaint: FALL - RIB PAIN Time Seen by Provider: 07/19/24 13:09 Source: patient Mode of arrival: walk-in History of Present Illness HPI narrative: Patient is a 64-year-old male who presents to the emergency department for the evaluation of injury to the right chest wall and left wrist that occurred just prior to arrival. Patient was in the back of the tailgate of a truck when he fell on his right side approximately 3 to 4 feet onto the ground. He is not sure if his chest wall hit the ground or if he may have jammed his right arm into his chest but he states he felt a crack in the right chest wall. He also injured his left wrist although he states his right chest wall is significantly more painful. He denies head injury, loss of consciousness. He denies neck or back pain. He denies any pain to the hips or lower extremities. He does not take any blood thinners. He was able to ambulate into the emergency department. No medications taken prior to arrival. Related Data Previous Rx's ?Medication ?Instructions ?Recorded ketorolac 10 mg tablet 10 mg PO TID PRN pain #10 tabs 07/19/24 methocarbamol 750 mg tablet 750 mg PO TID PRN pain #20 tabs 07/19/24 oxycodone-acetaminophen 5 mg-325 1 tab PO Q6H PRN pain 3 days #15 07/19/24 mg tablet (Percocet) tabs Allergies Allergy/AdvReac Type Severity Reaction Status Date / Time No Known Drug Allergies Allergy Verified 07/19/24 13:05 Opioid HPI Opioid Management Most Recent Opioid Data: No Data to Display Review of Systems ROS Constitutional Denies: fever or chills Eyes Denies: change in vision Ears, nose, mouth, and throat Denies: neck pain Cardiovascular Reports: chest pain Respiratory Denies: shortness of breath Gastrointestinal Denies: abdominal pain, nausea or vomiting Musculoskeletal Reports: extremity pain; Denies: back pain or neck pain Integumentary/Breast Denies: rash Neurological Denies: numbness in extremities or weakness in extremities Hematologic/Lymphatic Denies: easy bruising or easy bleeding Exam Narrative Exam Narrative: Gen.: Awake, alert, in no distress Head: Normocephalic, atraumatic ENT: Moist mucous membranes Respiratory: No respiratory distress, lungs clear bilaterally, no ecchymosis or crepitance of the chest wall with diffuse tenderness of the right posterolateral ribs. Cardio: Regular rate and rhythm Back: No bony point tenderness of the C-spine, T-spine or L-spine Extremities: Moves extremities equally, healing subungual hematoma noted to the right index finger nail from previous injury. Diffuse mild tenderness of the left wrist with no obvious deformity or swelling. 2+ left radial pulse Psych: Normal mood and affect Neuro: No focal neuro deficit Skin: Warm, dry, intact Constitutional Vital Signs, click to edit/add: Last Vital Signs Temp 98.7 F 07/19/24 13:00 Pulse 90 07/19/24 13:00 Resp 16 07/19/24 13:00 BP 185/116 H 07/19/24 13:00 Pulse Ox 97 07/19/24 13:00 O2 Del Method Room Air 07/19/24 13:00 Course Vital Signs Vital signs: Vital Signs Temperature 98.7 F 07/19/24 13:00 Pulse Rate 90 07/19/24 13:00 Respiratory Rate 16 07/19/24 13:00 Blood Pressure 185/116 H 07/19/24 13:00 Pulse Oximetry 97 07/19/24 13:00 Oxygen Delivery Method Room Air 07/19/24 13:00 Temperature 98.7 F 07/19/24 13:00 Pulse Rate 90 07/19/24 13:00 Respiratory Rate 16 07/19/24 13:00 Blood Pressure 185/116 H 07/19/24 13:00 Pulse Oximetry 97 07/19/24 13:00 Oxygen Delivery Method Room Air 07/19/24 13:00 Medical Decision Making MDM Narrative Medical decision making narrative: Left wrist x-rays are unremarkable and CT of the chest shows nondisplaced fractures of the right sixth and seventh ribs. There is no pneumothorax and the patient has stable vital signs and oxygenation. He is breathing easily on room air, able to ambulate in the emergency room with no difficulty and declined any narcotic pain medications. He is sent home with Pep therapy, a short course of analgesics, muscle relaxants and NSAIDs follow-up with his primary care provider and return to the ER if symptoms change or worsen SUPERVISED APC VISIT, PHYSICIAN ATTESTATION: Based on the medical record the care appears appropriate. ? Medical Records Medical records reviewed: Yes I reviewed the patient's medical records Imaging Data CT scan - chest: Attestation: I have reviewed the pertinent imaging results. Radiologist's impression: ITS Impressions Wrist X-Ray 07/19/24 13:05 IMPRESSION: Moderate osteoarthritis. Electronically authenticated by: BRUNO HANKINS Date: 07/19/2024 13:[address] 07/19/24 13:14 IMPRESSION: Nondisplaced fractures right lateral sixth and seventh ribs with no pneumothorax Electronically authenticated by: BRUNO HANKINS Date: 07/19/2024 14:13 Discharge Plan Discharge Chief Complaint: Chest Pain Clinical Impression: Fall, Multiple rib fractures, Contusion of left wrist Patient Disposition: Home, Self-Care Time of Disposition Decision: 14:38 Condition: Good Prescriptions / Home Meds: New ketorolac 10 mg tablet 10 mg PO TID PRN (Reason: pain) Qty: 10 0RF oxycodone-acetaminophen [Percocet] 5-325 mg tablet 1 tab PO Q6H PRN (Reason: pain) 3 Days Qty: 15 0RF Rx Instructions: DX: R07.82 methocarbamol 750 mg tablet 750 mg PO TID PRN (Reason: pain) Qty: 20 0RF Print Language: Guatemalan Instructions: Rib Fracture (ED) Referrals: Armen Wang MD [Primary Care Provider] - 1 week Discharge Date/Time: 07/19/24 14:51
--- OUTSIDE RECORDS SUMMARY | 2024-07-19 13:16 | XMS_ITS | CCD ---
Author Organization [facility] Care Team Providers Care Command Center Analyst Name Role Phone PHYSICIAN, DEFAULT Unavailable Unavailable PHYSICIAN, DEFAULT Unavailable Unavailable Hoy, Julian Primary Care Physician REYNA, DR PRESTON Attending Unavailable HOY, JULIAN Primary Care Unavailable REYNA, DR PRESTON Consulting Unavailable JOSÉ MIGUELUKARBEL, DR PRESTON Admitting Unavailable HOY, JULIAN Primary [...] JOHNSTON Attending Unavailable HOY, JULIAN Consulting Unavailable FOREMAN, WANDA Consulting Unavailable NILL ., DR JOHNSTON Admitting Unavailable NILL ., DR JOHNSTON Attending Unavailable HOY, JULIAN Primary Care Unavailable NILL ., DR JOHNSTON Consulting Unavailable JERALD SCHREIBER Consulting Unavailable ANDERSON DAVIS Consulting Unavailable MOUKARBEL, DR PRESTON Admitting Unavailable HOY, JULIAN Primary Care Unavailable JOSÉ MIGUELUKACT, DR PRESTON Attending Unavailable HOY, JULIAN Admitting [...] Onset: 12-22-2021 Episodic Other aftercare (1 source) jail (current) use of aspirin; Translations: [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 Cardiac arrest: Mother. Pancreatic adenocarcinoma: Father. [facility] [place] Comment on above: Result Comment: Elec tronically Signed By: ARISTEO JONES, Preston Thakkar\.br\Date and Time Signed: 02/14/22 21:00 EDT Formson 01-22-2022 Forms [id number]:12 7 [facility] [place] Ambulatory Visit Summaryon 0 01-19-2022 Ambulatory Visit [...] Thakkar Where: General Surgery [facility] General Surgery Office/Clini c Noteon 01-19-2022 General [...] Cardiac arrest: Mother. Pancreatic adenocarcinoma: Father. Normal [facility] Comment on above: Result Comment: Elec tronically Signed By: ARISETO JONES, Preston Velarde\Date and Time Signed: 01/19/22 16:25 EDT Operative Reporton 2 Operative Report [id number]:12 7 Normal [facility] Lab Reportson 01-04-2022 Lab Reports [id number]:12 7 Normal [facility] Covid-19 PCR (CVDTBH)on SARS-CoV-2 (COVID-19) RNA FARA+probe Ql (Unsp spec) Not detected Normal NOT DETECTED [facility] Comment on above: Result Comment: When [...] for this test is supported by the [place] of Health and Human Service's declaration that [...] longer be used). Performed By: #### C VDTB #### [facility] [address] [place] [address] Dr. Shan Worley T4 LABCORPon 12-25-2021 T4 [Mass/Vol] 8.5 ug/dL Normal 4.5-12.0 [facility] Comment on above: Performed By: #### T 4LC #### [facility] [address] [place] [address] Dr. Shan Worley Formson 12-24-2021 Forms [id number]:12 7 Normal [facility] TESTOSTERONE, TOTALon 2021 Testosterone [Mass/Vol] 294 ng/dL Normal 264-916 [facility] Comment on above: Result Comment: Adul t male reference interval is based on a population of healthy nonobese males (BMI <30) between 19 and 39 years old. Devin, et.al. JCEM 2017,102;6602-6566. PMID: 93124343. Performed By: #### T ESTTOT #### [facility] [address] [place] [address] Dr. Shan Worley CBC AUTO DIFFon 12-22-2021 BASO # 0.0 103/ul Normal 0.0-0.1 [facility] Comment on above: Performed By: #### C BC #### [facility] [address] [place] [address] Dr. Shan Worley Basophils/100 WBC (Bld) 0.2 % Normal 0.2-2.0 [facility] Comment on above: Performed By: #### C BC #### [facility] [address] [place] [address] Dr. Shan Worley EO # 0.1 103/ul Normal 0.0-0.7 [facility] Comment on above: Performed By: #### C BC #### [facility] [address] [place] [address] Dr. Shan Worley Eosinophils/100 WBC (Bld) 1.6 % Normal 0.9-7.0 [facility] Comment on above: Performed By: #### C BC #### [facility] [address] [place] [address] Dr. Shan Worley Erythrocyte distribution width (RBC) [Ratio] 12.7 % Normal 11.0-15.0 [facility] Comment on above: Performed By: #### C BC #### [facility] [address] [place] [address] Dr. Shan Worley Hematocrit (Bld) [Volume fraction] 46.9 % Normal 42.0-54.0 [facility] Comment on above: Performed By: #### C BC #### [facility] [address] [place] [address] Dr. Shan Worley Hemoglobin (Bld) [Mass/Vol] 15.9 g/dL Normal 14.0-18.0 [facility] Comment on above: Performed By: #### C BC #### [facility] [address] [place] [address] Dr. Shan Worley IG # 0.04 10e3/ul Critically high 0.00-0.03 [facility] Comment on above: Performed By: #### C BC #### [facility] [address] [place] [address] Dr. Shan Worley IG % 0.5 % Normal 0.0-0.5 [facility] Comment on above: Performed By: #### C BC #### [facility] [address] [address] [address] Shan Worley LYMPH # 1.5 103/ul Normal 1.2-3.8 [facility] Comment on above: Performed By: #### C BC #### [facility] [address] [place] [address] Dr. Shan Worley Lymphocytes/100 WBC (Bld) 18.1 % Critically low 20.5-60.0 [facility] Comment on above: Performed By: #### C BC #### [facility] [address] [place] [address] Dr. Shan Worley MANUAL DIFF REQ NO Normal [facility] Comment on above: Performed By: #### C BC #### [facility] [address] [place] [address] Dr. Shan Worley MCH (RBC) [Entitic mass] 31.5 pg Normal 25.9-34.0 [facility] Comment on above: Performed By: #### C BC #### [facility] [address] [place] [address] Dr. Shan Worley MCHC (RBC) [Mass/Vol] 33.9 g/dL Normal 29.9-35.2 [facility] Comment on above: Performed By: #### C BC #### [facility] [address] [place] [address] Dr. Shan Worley MCV (RBC) [Entitic vol] 92.9 fL Normal 80.0-94.0 [facility] Comment on above: Performed By: #### C BC #### [facility] [address] [place] [address] Dr. Shan Worley MONO # 0.7 103/ul Normal 0.3-0.8 [facility] Comment on above: Performed By: #### C BC #### [facility] [address] [place] [address] Dr. Shan Worley Monocytes/100 WBC (Bld) 8.8 % Normal 1.7-12.0 [facility] Comment on above: Performed By: #### C BC #### [facility] [address] [address] [address] Shan Worley NEUT # 5.8 103/ul Normal 1.4-6.5 [facility] Comment on above: Performed By: #### C BC #### [facility] [address] [address] [address] Shan Worley Neutrophils/100 WBC (Bld) 70.8 % Normal 43.0-75.0 [facility] Comment on above: Performed By: #### C BC #### [facility] [address] [place] [address] Dr. Shan Worley Platelet mean volume (Bld) [Entitic vol] 8.6 fL Critically low 9.5-13.5 [facility] Comment on above: Performed By: #### C BC #### [facility] [address] [place] [address] Dr. Shan Worley PLT 285 103/ul Normal 150-450 [facility] Comment on above: Performed By: #### C BC #### [facility] [address] [place] [address] Dr. Shan Worley RBC 5.05 106/ul Normal 4.70-6.10 [facility] Comment on above: Performed By: #### C BC #### [facility] [address] [address] [address] Shan Worley WBC 8.2 103/ul Normal 4.0-11.0 [facility] Comment on above: Performed By: #### C BC #### [facility] [address] [place] [address] Dr. Shan Worley FREE T3on 12-22-2021 FREE T3 3.46 pg/mlL Normal 2.18-3.98 [facility] Comment on above: Performed By: #### T SH, FT3 #### [facility] [address] [address] [address] Shan Worley TSHon 12-22-2021 TSH 1.370 uIU/mL Normal 0.358-3.740 The [facility] Comment on above: Performed By: #### T SH, FT3 #### [facility] [address] [place], [place] [address] Dr. Shan Worley TSH RANGE SEE BELOW Normal [facility] Comment on above: Result Comment: <0.3 4 UIU/ml HYPERTHYROID 0.34-5.60 UIU/ml EUTHYROID >5.60 UIU/ml HYPOTHYROID Performed By: #### T SH, FT3 #### [facility] [address] [place], [place] [address] Dr. Shan Worley Consent for Procedure/Surger yon 12-03-2021 Consent for Procedure/Surgery [id number]:12 7 Normal [facility] Ambulatory Visit Summaryon 0 12-01-2021 Ambulatory Visit Summary PERLA LAMNAEEM Martinez :1960 Visit Date:12/01/2021 Ambulatory Visit Instructions Your [...] Palpitations Rectal bleeding Right inguinal hernia Normal [facility] MRI BRAIN WO W CONon 022 [...] by: Minh GUERRERO Date: 2021-11-20 13:42 Normal [facility] Physician Referralon 022 Physician Referral [id number]:12 7 Normal [facility] LIPID PROFILEon 10-26-2021 CHOL-HDL RATIO NORM SEE BELOW Normal [facility] Comment on above: Result Comment: 3.3 - 4.4 LOW RISK 4.4 - 7.1 AVERAGE RISK 7.1 - 11.0 MODERATE RISK >11.0 HIGH RISK Performed By: #### L IPID #### [facility] [address] [address] [address] Shan Worley Cholesterol [Mass/Vol] 237 mg/dL Critically high <=200 [facility] Comment on above: Performed By: #### L IPID #### [facility] [address] [address] [address] Shan Worley Cholesterol in HDL [Mass/Vol] 52 mg/dL Normal 40-60 [facility] Comment on above: Performed By: #### L IPID #### [facility] [address] [address] [address] Shan Worley Cholesterol in LDL [Mass/Vol] 165.6 mg/dL Normal [facility] Comment on above: Performed By: #### L IPID #### [facility] [address] [address] [address] Shan Worley Cholesterol.total /Cholesterol in HDL [Mass ratio] 4.6 {ratio} Normal [facility] Comment on above: Performed By: #### L IPID #### [facility] [address] [address] [address] Shan Worley HDL NORMAL > or = 60 mg/dl - LO W CARDIOVASCULAR RISK <40 mg/dl - HIGH CARDIOVASCULAR RISK Normal [facility] Comment on above: Performed By: #### L IPID #### [facility] [address] [address] [address] Shan Worley LDL CALC NORMAL SEE BELOW Normal [facility] Comment on above: Result Comment: <100 mg/dl OPTIMAL 100 - 129 mg/dl NEAR OR ABOVE OPTIMAL 130 - 159 mg/dl BORDERLINE HIGH 160 - 189 mg/dl HIGH >190 mg/dl VERY HIGH Performed By: #### L IPID #### [facility] [address] [address] [address] Shan Worley Triglyceride [Mass/Vol] 97 mg/dL Normal <=150 [facility] Comment on above: Performed By: #### L IPID #### [facility] [address] [address] [address] Shan Worley VLDL CALC 19.4 mg/dL Normal [facility] Comment on above: Performed By: #### L IPID #### [facility] [address] [address] [address] Shan Worley Vital Signs Date Time Vital Sign Value Performing Clinician Colton mejia 12-01-2021 13:22-0400 Blood Pressure Location Preston ARISTEO [facility] 12-01-2021 13:22-0400 Diastolic blood pressure 96 mm[Hg] Preston ALBERTS [facility] 12-01-2021 13:22-0400 Heart rate 76 /min Preston ALEBRTS [facility] [place] 12-01-2021 13:22-0400 Respiratory rate 16 /min Preston BERENICEL [facility] 12-01-2021 13:22-0400 Systolic blood pressure 148 mm[Hg] Preston NGL [facility] [place] Encounters Encounter Date Encounter Type Care Provider Facility Start: 10-12-2022 ambulatory [facility] Facility:H 1 Start: 02-02-2022 End: 02-02-2022 Patient encounter procedure Preston Thakkar NILL General Surgery [facility] [place] Start: 01-26-2022 End: 01-27-2022 ambulatory [facility] Facility:[facility]1 Start: 01-19-2022 End: 01-19-2022 Patient encounter procedure Preston NGL General Surgery [facility] [place] Start: 01-07-2022 Encounter for preprocedural laboratory examination DR PRESTON ALBERTS . [facility] Start: 01-06-2022 End: 01-06-[address] PRESTON ALBERTS . Facility: Start: 01-02-2022 End: 01-03-[address] PRESTON ALBERTS . Facility:[facility]1 Start: 01-02-2022 End: 01-03-2022 Encounter for preprocedural laboratory examination DR PRESTON ALBERTS . Facility:[facility]1 Start: 12-25-2021 Encounter for other preprocedural examination DR PRESTON ALBERTS . [facility] Start: 12-23-2021 End: 12-24-[address] PRESTON ALBERTS . Facility:[facility]1 Start: 12-23-2021 End: 12-24-2021 Encounter for other preprocedural examination DR PRESTON ALBERTS . Facility:[facility]1 Start: 12-22-2021 End: 12-23-2021 ambulatory [facility] Facility:[facility]1 Start: 12-01-2021 End: 12-01-2021 Patient encounter procedure Preston ALBERTS General Surgery [facility] [place] Start: 11-20-2021 End: 11-20-2021 ambulatory JULIAN WANG Facility: Start: 11-13-[address] KARY ORELLANA Fac ility:[facility]1 Start: 10-26-2021 End: 10-27-[address] KARY ORELLANA Facility:[facility]1 Start: 01-27-2017 End: 01-28-2017 Ambulatory DEFAULT PHYSICIAN Facility:[facility] Procedures Date Procedure Procedure Detail Performing Clinician [...] NILL Payers Date Payer Category Payer Unknown [id number] 2.16.84 [id number] 1960 Unknown [id number] 2.16.84 [id number] 1960 Unknown [id number] 2.16.84 [id number] 1960 Unknown [id number] 2.16.84 [id number] 1960 Unknown [id number] 2.16.84 [id number] 1960 Unknown [id number] 2.16.84 [id number] 1960 Unknown [id number] 2.16.84 [id number] 1960 Unknown [id number] 2.16.84 [id number] 1960 Unknown [id number] 2.16.84 [id number] 1957 Private Health Insurance [id number] 1957 Self-pay Unknown Social History Date Type Detail Facility Start: 12-01-2021 Tobacco smoking status Never s moked tobacco (finding) [facility] Tobacco smoking status Never Gener al [facility] Sex Assigned At Male Genera l [facility] Clinical Note 01-06-2022 Note Date & Type [...] structures were mobilized and retraced with a [place] drain. The ilioinguinal nerve was noted to [...] in good condition. CC: Julian Wang M.D. [facility] Signed and Approved by: DR PRESTON ALBERTS . 01/07/2022 13:04:00 [facility] Clinical Note 12-01-2021 Note Date & Type Note Facility 12-01-2021 Note Chief Complaint consultation for rectal pain/pressure and [facility] HPI Staff 61 year old male presents [...] History Alcohol - Denies Alcohol Use, 07/10/2020 [facility] (more content not included)... [facility] Comment on above: Result Comment: Elec tronically Signed By: Preston ALBERTS MD\.br\Date and Time Signed: 12/01/21 16:42 EDT Evaluation + Plan note Note Date & Type Note Facility Evaluation + Plan note No data available for this section [facility] [place] Evaluation + Plan note Note Date & Type Note Facility Evaluation + Plan note Future Appointments Appointment Date:02/02/2022 02:40:00 PM Scheduled Provider:Preston ALBERTS MD Location:[facility] Appointment Type: Post Op 15 [facility] Discharge instructions Note Date & Type [...] section and content) DATE CREATED AUTHOR 01/25/2018 [facility] DATE CREATED AUTHOR AUTHOR'S ORGANIZ ATION 02/19/2022 [facility] DATE CREATED AUTHOR AUTHOR'S ORGANIZ ATION 10/13/2022 [facility] Care Team (unrecognized sect ion and content) Personnel Name: Julian Wang MD Address: [address] [place] [address] Personnel Name: Julian Wang MD Address: [address] [place] [address] FOR RECORDS PERTAINING TO PATIENTS WHO ARE [...] BE BASED ON THE PRIMARY CLINICAL RECORDS. [facility]. provides no warranty or guarantee of the accuracy or completeness of information in this document.
[2024-07-19] MEDS: KETOROLAC TROMETHAMINE 10 MG TABLET PO (13:26)
[2024-07-19] MEDS: METHOCARBAMOL 500 MG TABLET 1000 MG PO (13:27)
== END 2024-07-19 14:51 | disposition home or self-care (01) ==
PROVIDERS: Emergency Provider Emergency Medicine; PCP Family Medicine
DX: S22.41XA Multiple fractures of ribs, right side, initial encounter for closed fracture (principal); S60.212A Contusion of left wrist, initial encounter; W17.89XA Other fall from one level to another, initial encounter
CPT/HCPCS: 71250; 73110; 94667; 99284

== ENCOUNTER 2024-08-14 18:06 | Outpatient (OUT) | payer OTHER, SELFPAY ==
--- NOTE | 2024-08-14 | XR_ITS ---
The [address] [address] Patient Name: CARINA LAM MRN: [id number] date: 1960 Sex: M Assigned Patient Location: [facility] Current Patient Location: Accession/Order Number: [id number] Exam Date: 08/14/2024 18:17 Report Date: 08/15/2024 07:20 At the request of: JULIAN ELKINS Procedure: XR ribs RT 2V EXAMINATION: XR ribs RT 2V HISTORY: Fracture of right ribs COMPARISON: 07/19/2024 FINDINGS: RIBS: The sixth rib fracture is not seen on plain x-ray. Nondisplaced seventh rib fracture best seen on image 2 LUNGS: No appreciable pneumothorax or pleural thickening. OTHER: Negative. XR/XR ribs RT 2V IMPRESSION: Stable fractures Electronically authenticated by: BRUNO HANKINS Date: 08/15/2024 07:20
--- OUTSIDE RECORDS SUMMARY | 2024-08-14 18:12 | XMS_ITS | CCD ---
Author Organization [facility] Care Team Providers Care Forms Examiner Name Role Phone PHYSICIAN, DEFAULT Unavailable Unavailable PHYSICIAN, DEFAULT Unavailable Unavailable Hoy, Julian Primary Care Physician [phone] REYNA, DR PRESTON Attending Unavailable HOY, JULIAN [...] Onset: 12-22-2021 Episodic Other aftercare (1 source) USP (current) use of aspirin; Translations: [[facility] CURRENT USE OF ASPIRIN] Onset: 01-12-2022 Episodic Other aftercare (1 source) Other care home (current) drug therapy; Translations: [OTH [facility] CURRENT DRUG THERAPY] Onset: 01-12-2022 Episodic Other [...] Grier Only if needed [address] [place] [address]- Additional Instructions: Problem List/Past Medical [...] Brother. Cardiac arrest: Mother. Pancreatic adenocarcinoma: Father. [facility] Comment on above: Result Comment: Elec tronically Signed By: ARISTEO JONES, Preston Thakkar\.br\Date and Time Signed: 02/14/22 21:00 EDT Formson 01-22-2022 Forms [id number]:12 7 [facility] Ambulatory Visit Summaryon 0 01-19-2022 Ambulatory [...] Thakkar Where: General Surgery Aristeo/Yuri [facility] Senior [facility] General Surgery Office/Clini c Noteon 01-19-2022 General [...] Cardiac arrest: Mother. Pancreatic adenocarcinoma: Father. Normal [facility] Comment on above: Result Comment: Elec tronically Signed By: ARISTEO JONES, Preston Velarde\Date and Time Signed: 01/19/22 16:25 EDT Operative Reporton 2 Operative Report [id number]:12 7 Normal [facility] Lab Reportson 01-04-2022 Lab Reports [id number]:12 7 Normal [facility] Covid-19 PCR (CVDTBH)on SARS-CoV-2 (COVID-19) RNA FARA+probe Ql (Unsp spec) Not detected Normal NOT DETECTED [facility] Comment on above: Result Comment: When diagnostic [...] for this test is supported by the Vice President of Health and Human Service's declaration that [...] used). Performed By: #### C VDTB #### [facility] [address] [place] [address] Dr. Shan Worley T4 LABCORPon 12-25-2021 T4 [Mass/Vol] 8.5 ug/dL Normal 4.5-12.0 [facility] Comment on above: Performed By: #### T 4LC #### [facility] [address] [place] [address] Dr. Shan Worley Formson 12-24-2021 Forms [id number]:12 7 Normal [facility] TESTOSTERONE, TOTALon 2021 Testosterone [Mass/Vol] 294 ng/dL Normal 264-916 [facility] Comment on above: Result Comment: Adul t male reference interval is based on a population of healthy nonobese males (BMI <30) between 19 and 39 years old. Devin, et.al. JCEM 2017,102;7157-1364. PMID: [id number]. Performed By: #### T ESTTOT #### [facility] [address] [place] [address] Dr. Shan Worley CBC AUTO DIFFon 12-22-2021 BASO # 0.0 103/ul Normal 0.0-0.1 [facility] Comment on above: Performed By: #### C BC #### [facility] [address] [place] [address] Dr. Shan Worley Basophils/100 WBC (Bld) 0.2 % Normal 0.2-2.0 [facility] Comment on above: Performed By: #### C BC #### [facility] [address] [place] [address] Dr. Shan Worley EO # 0.1 103/ul Normal 0.0-0.7 [facility] Comment on above: Performed By: #### C BC #### [facility] [address] [place] [address] Dr. Shan Worley Eosinophils/100 WBC (Bld) 1.6 % Normal 0.9-7.0 [facility] Comment on above: Performed By: #### C BC #### [facility] [address] [place] [address] Dr. Shan Worley Erythrocyte distribution width (RBC) [Ratio] 12.7 % Normal 11.0-15.0 [facility] Comment on above: Performed By: #### C BC #### [facility] [address] [place] [address] Dr. Shan Worley Hematocrit (Bld) [Volume fraction] 46.9 % Normal 42.0-54.0 [facility] Comment on above: Performed By: #### C BC #### [facility] [address] [place] [address] Dr. Shan Worley Hemoglobin (Bld) [Mass/Vol] 15.9 g/dL Normal 14.0-18.0 [facility] Comment on above: Performed By: #### C BC #### [facility] [address] [place] [address] Dr. Shan Worley IG # 0.04 10e3/ul Critically high 0.00-0.03 [facility] Comment on above: Performed By: #### C BC #### [facility] [address] [place] [address] Dr. Shan Worley IG % 0.5 % Normal 0.0-0.5 [facility] Comment on above: Performed By: #### C BC #### [facility] [address] [address] [address] Shan Worley LYMPH # 1.5 103/ul Normal 1.2-3.8 [facility] Comment on above: Performed By: #### C BC #### [facility] [address] [place] [address] Dr. Shan Worley Lymphocytes/100 WBC (Bld) 18.1 % Critically low 20.5-60.0 [facility] Comment on above: Performed By: #### C BC #### [facility] [address] [place] [address] Dr. Shan Worley MANUAL DIFF REQ NO Normal [facility] Comment on above: Performed By: #### C BC #### [facility] [address] [place] [address] Dr. Shan Worley MCH (RBC) [Entitic mass] 31.5 pg Normal 25.9-34.0 [facility] Comment on above: Performed By: #### C BC #### [facility] [address] [place] [address] Dr. Shan Worley MCHC (RBC) [Mass/Vol] 33.9 g/dL Normal 29.9-35.2 [facility] Comment on above: Performed By: #### C BC #### [facility] [address] [place] [address] Dr. Shan Worley MCV (RBC) [Entitic vol] 92.9 fL Normal 80.0-94.0 [facility] Comment on above: Performed By: #### C BC #### [facility] [address] [place] [address] Dr. Shan Worley MONO # 0.7 103/ul Normal 0.3-0.8 [facility] Comment on above: Performed By: #### C BC #### [facility] [address] [place] [address] Dr. Shan Worley Monocytes/100 WBC (Bld) 8.8 % Normal 1.7-12.0 [facility] Comment on above: Performed By: #### C BC #### [facility] [address] [address] [address] Shan Worley NEUT # 5.8 103/ul Normal 1.4-6.5 [facility] Comment on above: Performed By: #### C BC #### [facility] [address] [address] [address] Shan Worley Neutrophils/100 WBC (Bld) 70.8 % Normal 43.0-75.0 [facility] Comment on above: Performed By: #### C BC #### [facility] [address] [place] [address] Dr. Shan Worley Platelet mean volume (Bld) [Entitic vol] 8.6 fL Critically low 9.5-13.5 [facility] Comment on above: Performed By: #### C BC #### [facility] [address] [place] [address] Dr. Shan Worley PLT 285 103/ul Normal 150-450 [facility] Comment on above: Performed By: #### C BC #### [facility] [address] [place] [address] Dr. Shan Worley RBC 5.05 106/ul Normal 4.70-6.10 [facility] Comment on above: Performed By: #### C BC #### [facility] [address] [address] [address] Shan Worley WBC 8.2 103/ul Normal 4.0-11.0 [facility] Comment on above: Performed By: #### C BC #### [facility] [address] [place] [address] Dr. Shan Worley FREE T3on 12-22-2021 FREE T3 3.46 pg/mlL Normal 2.18-3.98 [facility] Comment on above: Performed By: #### T SH, FT3 #### [facility] [address] [address] [address] Shan Worley TSHon 12-22-2021 TSH 1.370 uIU/mL Normal 0.358-3.740 [facility] Comment on above: Performed By: #### T SH, FT3 #### [facility] [address] [place], [place] [address] Dr. Shan Worley TSH RANGE SEE BELOW Normal [facility] Comment on above: Result Comment: <0.3 4 UIU/ml HYPERTHYROID 0.34-5.60 UIU/ml EUTHYROID >5.60 UIU/ml HYPOTHYROID Performed By: #### T SH, FT3 #### [facility] [address] [place], [place] [address] Dr. Shan Worley Consent for Procedure/Surger yon 12-03-2021 Consent for Procedure/Surgery [id number]:12 7 Normal [facility] Ambulatory Visit Summaryon 0 12-01-2021 Ambulatory Visit [...] Palpitations Rectal bleeding Right inguinal hernia Normal [facility] MRI BRAIN WO W CONon 022 MRI [...] by: Minh GUERRERO Date: 2021-11-20 13:42 Normal [facility] Physician Referralon 022 Physician Referral [id number]:12 7 Normal [facility] LIPID PROFILEon 10-26-2021 CHOL-HDL RATIO NORM SEE BELOW Normal [facility] Comment on above: Result Comment: 3.3 - 4.4 LOW RISK 4.4 - 7.1 AVERAGE RISK 7.1 - 11.0 MODERATE RISK >11.0 HIGH RISK Performed By: #### L IPID #### [facility] [address] [address] [address] Shan Worley Cholesterol [Mass/Vol] 237 mg/dL Critically high <=200 [facility] Comment on above: Performed By: #### L IPID #### [facility] [address] [address] [address] Shan Wolrey Cholesterol in HDL [Mass/Vol] 52 mg/dL Normal 40-60 [facility] Comment on above: Performed By: #### L IPID #### [facility] [address] [address] [address] Shan Worley Cholesterol in LDL [Mass/Vol] 165.6 mg/dL Normal [facility] Comment on above: Performed By: #### L IPID #### [facility] [address] [address] [address] Shan Worley Cholesterol.total /Cholesterol in HDL [Mass ratio] 4.6 {ratio} Normal [facility] Comment on above: Performed By: #### L IPID #### [facility] [address] [address] [address] Shan Worley HDL NORMAL > or = 60 mg/dl - LO W CARDIOVASCULAR RISK <40 mg/dl - HIGH CARDIOVASCULAR RISK Normal [facility] Comment on above: Performed By: #### L IPID #### [facility] [address] [address] [address] Shan Worley LDL CALC NORMAL SEE BELOW Normal [facility] Comment on above: Result Comment: <100 mg/dl OPTIMAL 100 - 129 mg/dl NEAR OR ABOVE OPTIMAL 130 - 159 mg/dl BORDERLINE HIGH 160 - 189 mg/dl HIGH >190 mg/dl VERY HIGH Performed By: #### L IPID #### [facility] [address] [address] [address] Shan Worley Triglyceride [Mass/Vol] 97 mg/dL Normal <=150 [facility] Comment on above: Performed By: #### L IPID #### [facility] [address] [address] [address] Shan Worley VLDL CALC 19.4 mg/dL Normal [facility] Comment on above: Performed By: #### L IPID #### [facility] [address] [address] [address] Shan Worley Vital Signs Date Time Vital Sign Value Performing Clinician Colton mejia 12-01-2021 13:22-0400 Blood Pressure Location Preston ARISTEO [facility] 12-01-2021 13:22-0400 Diastolic blood pressure 96 mm[Hg] Preston ALBERTS [facility] 12-01-2021 13:22-0400 Heart rate 76 /min Preston ALBERTS [facility] 12-01-2021 13:22-0400 Respiratory rate 16 /min Preston BERENICEL General Surgery [facility] 12-01-2021 13:22-0400 Systolic blood pressure 148 mm[Hg] Preston NGL [facility] Encounters Encounter Date Encounter Type Care Provider Facility Start: 10-12-2022 ambulatory [facility] Facility:[facility] 1 Start: 02-02-2022 End: 02-02-2022 Patient encounter procedure Preston Thakkar NILL General Surgery Nill/Said [facility] Start: 01-26-2022 End: 01-27-2022 ambulatory [facility] Facility:[facility] Start: 01-19-2022 End: 01-19-2022 Patient encounter procedure Preston NGL General Surgery Nill/Said [facility] Start: 01-07-2022 Encounter for preprocedural laboratory examination DR PRESTON ALBERTS . [facility] Start: 01-06-2022 End: 01-06-[address] PRESTON ALBERTS . Facility: Start: 01-02-2022 End: 01-03-[address] PRESTON ALBERTS . Facility:[facility] Start: 01-02-2022 End: 01-03-2022 Encounter for preprocedural laboratory examination DR PRESTON ALBERTS . Facility:[facility] Start: 12-25-2021 Encounter for other preprocedural examination DR PRESTON ALBERTS . [facility] Start: 12-23-2021 End: 12-24-[address] PRESTON ALBERTS . Facility:[facility] Start: 12-23-2021 End: 12-24-2021 Encounter for other preprocedural examination DR PRESTON ALBERTS . Facility:[facility] Start: 12-22-2021 End: 12-23-2021 ambulatory [facility] Facility:[facility] Start: 12-01-2021 End: 12-01-2021 Patient encounter procedure Preston ALBERTS General Surgery Nill/Said [facility] Start: 11-20-2021 End: 11-20-2021 ambulatory JULIAN WANG Facility: Start: 11-13-[address] KARY ORELLANA Fac ility:[facility] Start: 10-26-2021 End: 10-27-[address] KARY ORELLANA Facility:[facility] Start: 01-27-2017 End: 01-28-2017 Ambulatory DEFAULT PHYSICIAN Facility:[facility] Procedures Date Procedure Procedure Detail [...] NILL Payers Date Payer Category Payer Unknown [id number] 2.16.84 [id number] 1960 Unknown [id number] 2.16.84 [id number] 1962 Unknown [id number] 2.16.84 [id number] 1962 Unknown [id number] 2.16.84 [id number] 1962 Unknown [id number] 2.16.84 [id number] 1962 Unknown [id number] 2.16.84 [id number] 1962 Unknown [id number] 2.16.84 [id number] 1962 Unknown [id number] 2.16.84 [id number] 1962 Unknown [id number] 2.16.84 [id number] 1959 Private Health Insurance [id number] 1957 Self-pay Unknown Social History Date Type Detail Facility Start: 12-01-2021 Tobacco smoking status Never s moked tobacco (finding) General [facility] Tobacco smoking status Never Gener al Surgery [facility] Sex Assigned At Male Genera l Surgery [facility] Clinical Note 01-06-2022 Note Date & Type [...] structures were mobilized and retraced with a Rincon drain. The ilioinguinal nerve was noted to [...] in good condition. CC: Julian Wang M.D. [facility] Signed and Approved by: DR PRESTON ALBERTS . 01/07/2022 13:04:00 [facility] Clinical Note 12-01-2021 Note Date & Type Note Facility 12-01-2021 Note Chief Complaint consultation for rectal pain/pressure and [facility] HPI Staff 61 year old male presents [...] [facility] (more content not included)... [facility] Comment on above: Result Comment: Elec tronically Signed By: Preston ALBERTS MD\.br\Date and Time Signed: 12/01/21 16:42 EDT Evaluation + Plan note Note Date & Type Note Facility Evaluation + Plan note No data available for this section General Surgery [facility] Evaluation + Plan note Note Date & Type Note Facility Evaluation + Plan note Future Appointments Appointment Date:02/02/2022 02:40:00 PM Scheduled Provider:Preston ALBERTS MD Location:[facility] Appointment Type: Post Op 15 General Surgery [facility] Discharge instructions Note Date & Type [...] section and content) DATE CREATED AUTHOR 01/25/2018 [facility] DATE CREATED AUTHOR AUTHOR'S ORGANIZ ATION 02/19/2022 [facility] DATE CREATED AUTHOR AUTHOR'S ORGANIZ ATION 10/13/2022 [facility] Care Team (unrecognized sect ion and content) Personnel Name: Julian Wang MD Address: [address] [place] [address] Personnel Name: Julian Wang MD Address: [address] [place] [address] FOR RECORDS PERTAINING TO PATIENTS WHO ARE [...] BE BASED ON THE PRIMARY CLINICAL RECORDS. [facility]. provides no warranty or guarantee of the accuracy or completeness of information in this document.
== END 2024-08-14 18:07 | disposition home or self-care (01) ==
PROVIDERS: PCP Family Medicine; Visit Provider Family Medicine
DX: S22.41XD Multiple fractures of ribs, right side, subsequent encounter for fracture with routine healing (principal)
CPT/HCPCS: 71100